=== PATIENT | male | born 1990 | race Caucasian/White ===

== ENCOUNTER 2023-05-25 12:17 | Emergency (ER) | payer SELFPAY ==
[2023-05-25 12:21] VITALS: BP 138/89; PULSE 88; RESP 18; TEMP 36.6; O2SAT 100; BMI 21.1
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
[2023-05-25 14:02] VITALS: BP 131/81; PULSE 83; RESP 16; O2SAT 100
== END 2023-05-25 14:02 | disposition home or self-care (01) ==
PROVIDERS: Emergency Provider Physician Assistant
DX: S42.002A Fracture of unspecified part of left clavicle, initial encounter for closed fracture (principal); V86.56XA Driver of dirt bike or motor/cross bike injured in nontraffic accident, initial encounter
CPT/HCPCS: 73000; 99282; 99283